=== PATIENT | female | born 1965 | race Caucasian/White ===

== ENCOUNTER → 2018-04-14 | Outpatient (CLI) | payer MEDICAID ==
[~2018-04-14] MED LIST: iohexol 300mg/ml 100ml inj. ONE
== END | disposition home or self-care (01) ==
LOC: 64 CT 11:06
PROVIDERS: ATTEND Internal Medicine
DX: N83.02 Follicular cyst of left ovary (principal); K57.30 Diverticulosis of large intestine without perforation or abscess without bleeding; R16.1 Splenomegaly, not elsewhere classified; N32.1 Vesicointestinal fistula; Z90.49 Acquired absence of other specified parts of digestive tract
CPT/HCPCS: 74177; Q9967

== ENCOUNTER 2018-06-28 14:07 | Outpatient (CLI) | payer MEDICAID | END 2018-06-28 23:59 | disposition home or self-care (01) | LOC: 64 CT 14:07 | PROVIDERS: ATTEND Internal Medicine | DX: R59.0 Localized enlarged lymph nodes (principal); R16.2 Hepatomegaly with splenomegaly, not elsewhere classified; R11.10 Vomiting, unspecified; D72.829 Elevated white blood cell count, unspecified; Z90.49 Acquired absence of other specified parts of digestive tract | CPT/HCPCS: 74177; Q9967 ==

== ENCOUNTER 2018-07-24 15:13 | Outpatient (CLI) | payer MEDICAID ==
[2018-07-24] MEDS ORDERED: iohexol 300mg/ml 100ml inj. ONE (15:55)
== END 2018-07-24 23:59 | disposition home or self-care (01) ==
LOC: 64 CT 15:13
PROVIDERS: ATTEND Internal Medicine
DX: R16.2 Hepatomegaly with splenomegaly, not elsewhere classified (principal); K76.6 Portal hypertension; R60.9 Edema, unspecified; R59.0 Localized enlarged lymph nodes; Z90.49 Acquired absence of other specified parts of digestive tract
CPT/HCPCS: 74178; Q9967